=== PATIENT | female | born 1975 | race Caucasian/White ===

== ENCOUNTER 2022-03-16 06:33 | Day surgery (SDC) | payer OTHER ==
[~2022-03-16] VITALS: Ht 180.3 cm; Wt 69.5 kg
[~2022-03-16 06:33] MED LIST: PROCTOSOL HC
--- NOTE | 2022-03-17 15:31 | NUR ---
03/17/22 1531 Radha Sullivan INTO OR AT [id number] ENDOSCOPY TIME [phone]
== END 2022-03-16 09:38 | disposition home or self-care (01) ==
LOC: ORSCSDS 06:33
PROVIDERS: Surgery
PROC: 06BY0ZC Excision of Hemorrhoidal Plexus, Open Approach (ICD-10-PCS; principal; 2022-03-16 08:00)
PROC: 0DJD8ZZ Inspection of Lower Intestinal Tract, Via Natural or Artificial Opening Endoscopic (ICD-10-PCS; principal; 2022-03-16 08:00)
DX: K62.5 Hemorrhage of anus and rectum (principal); K64.4 Residual hemorrhoidal skin tags; F32.A Depression, unspecified; D50.9 Iron deficiency anemia, unspecified; R59.1 Generalized enlarged lymph nodes
CPT/HCPCS: 88304; J1100; J1885; J2250; J2405; J2704; J3010